=== PATIENT | male | born 1965 | race Caucasian/White ===

== ENCOUNTER 2017-05-16 23:27 | Inpatient (IN) | payer MEDICAID ==
[~2017-05-16] VITALS: Ht 162.6 cm; Wt 82.0 kg
[2017-05-17] VITALS (7 sets, daily range): BP systolic 109–126; BP diastolic 61–79
[2017-05-17 01:28] LABS: PLATELET COUNT 375 x10^3mcL (130-400); RED CELL DISTRIBUTION WIDTH 13.9 % (11.5-14.5)
[2017-05-17 01:36] LABS: CALCIUM 9.4 mg/dL (8.5-10.1); CARBON DIOXIDE 29.5 mmol/L (21-32); CHLORIDE SERUM 103 mmol/L (98-107); GFR1 > 60 mL/min; GLUCOSE SERUM 132 mg/dL (74-106); POTASSIUM SERUM 3.4 mmol/L (3.5-5.1); SODIUM SERUM 138 mmol/L (136-145)
[2017-05-17 01:41] LABS: ALBUMIN 3.8 g/dL (3.4-5.0); ALKALINE PHOSPHATASE 76 U/L (46-116); ALT/SGPT 21 U/L (16-63); AST/SGOT 27 U/L (15-37); BILIRUBIN TOTAL 0.77 mg/dL (0.20-1.00); LIPASE 114 IU/L (73-393); TOTAL PROTEIN, SERUM 7.4 g/dL (6.4-8.2)
[2017-05-17 03:41] LABS: AMPHETAMINE QUAL UR POSITIVE (NEG <=1000)
[2017-05-17 04:14] LABS: microscopic required? YES; urine erythrocyte TRACE (NEGATIVE)
[2017-05-17 04:26] LABS: T3 TOTAL 1.09 ng/mL
[2017-05-17 04:28] LABS: FREE T4 1.23 ng/dL (0.76-1.46); FREE THYROXINE INDEX 2.9 ug/dL (1.4-4.5); T4(THYROXINE) 7.7 ug/dL (4.7-13.3)
[2017-05-17 04:33] LABS: MAGNESIUM 2.2 mg/dL (1.8-2.4); PHOSPHOROUS 2.4 mg/dL (2.5-4.9)
[2017-05-17 16:43] LABS: CHOLESTEROL/HDL RATIO 3.6
[2017-05-18 06:23] VITALS: BP 115/77
[2017-05-18 07:22] LABS: CALCIUM 8.4 mg/dL (8.5-10.1); CARBON DIOXIDE 27.5 mmol/L (21-32); CHLORIDE SERUM 102 mmol/L (98-107); CREATININE SERUM 0.9 mg/dL (0.7-1.3); GFR1 > 60 mL/min; GLUCOSE SERUM 122 mg/dL (74-106); MAGNESIUM 1.9 mg/dL (1.8-2.4); PHOSPHOROUS 3.5 mg/dL (2.5-4.9); POTASSIUM SERUM 4.3 mmol/L (3.5-5.1); SODIUM SERUM 137 mmol/L (136-145)
[2017-05-18 07:32] LABS: BASOPHIL % 0.2 % (0-2); PLATELET COUNT 346 x10^3mcL (130-400); RED CELL DISTRIBUTION WIDTH 13.7 % (11.5-14.5)
[2017-05-18 10:31] VITALS: BP 112/78
[2017-05-18 13:20] VITALS: BP 127/80
[2017-05-18 18:04] VITALS: BP 150/92
[2017-05-18 20:44] VITALS: BP 145/89
[2017-05-19 04:48] VITALS: BP 136/82
[2017-05-19 06:11] LABS: BASOPHIL % 0.2 % (0-2); PLATELET COUNT 325 x10^3mcL (130-400); RED CELL DISTRIBUTION WIDTH 13.9 % (11.5-14.5)
[2017-05-19 06:41] LABS: CALCIUM 7.9 mg/dL (8.5-10.1); CARBON DIOXIDE 25.6 mmol/L (21-32); CHLORIDE SERUM 103 mmol/L (98-107); CREATININE SERUM 0.8 mg/dL (0.7-1.3); GFR1 > 60 mL/min; GLUCOSE SERUM 113 mg/dL (74-106); POTASSIUM SERUM 3.5 mmol/L (3.5-5.1); SODIUM SERUM 137 mmol/L (136-145)
[2017-05-19 10:00] VITALS: BP 127/80
[2017-05-19 15:15] VITALS: BP 104/65
[2017-05-19 17:40] VITALS: BP 122/73
[2017-05-19 20:51] VITALS: BP 141/90
[2017-05-20 05:19] VITALS: BP 122/70
[2017-05-20 06:35] LABS: PLATELET COUNT 320 x10^3mcL (130-400); RED CELL DISTRIBUTION WIDTH 13.9 % (11.5-14.5)
[2017-05-20 06:57] LABS: BASOPHIL % 0 % (0-2)
[2017-05-20 06:59] LABS: CALCIUM 8.1 mg/dL (8.5-10.1); CARBON DIOXIDE 26.3 mmol/L (21-32); CHLORIDE SERUM 104 mmol/L (98-107); CREATININE SERUM 0.8 mg/dL (0.7-1.3); GFR1 > 60 mL/min; GLUCOSE SERUM 124 mg/dL (74-106); POTASSIUM SERUM 3.3 mmol/L (3.5-5.1); SODIUM SERUM 137 mmol/L (136-145)
[2017-05-20 09:18] VITALS: BP 119/78
[2017-05-20 13:33] VITALS: BP 115/76
[2017-05-20 16:57] VITALS: BP 114/68
[2017-05-20 20:34] VITALS: BP 111/65
[2017-05-21 05:39] VITALS: BP 129/79
[2017-05-21 06:05] LABS: BASOPHIL % 0.3 % (0-2); PLATELET COUNT 358 x10^3mcL (130-400); RED CELL DISTRIBUTION WIDTH 13.8 % (11.5-14.5)
[2017-05-21 06:21] LABS: CALCIUM 8.1 mg/dL (8.5-10.1); CARBON DIOXIDE 30.9 mmol/L (21-32); CHLORIDE SERUM 103 mmol/L (98-107); CREATININE SERUM 0.8 mg/dL (0.7-1.3); GFR1 > 60 mL/min; GLUCOSE SERUM 109 mg/dL (74-106); POTASSIUM SERUM 3.7 mmol/L (3.5-5.1); SODIUM SERUM 140 mmol/L (136-145)
[2017-05-21 08:00] VITALS: BP 123/71
[2017-05-21 12:34] VITALS: BP 123/71
[2017-05-21] MEDS ORDERED: KEFLEX500 M1 PO (13:58)
[2017-05-21] MEDS ORDERED: LAC PO (13:59)
[2017-05-21] MEDS ORDERED: NORCO1 TA1 PO (14:01)
== END 2017-05-21 15:39 | disposition home or self-care (01) | DRG 262 ==
LOC: ED 23:27 → DU 05-17 03:47
PROVIDERS: Emergency Medicine; Family Medicine Sports Medicine; Surgery; ADMIT Family Medicine
PROC: 0DB68ZX Excision of Stomach, Via Natural or Artificial Opening Endoscopic, Diagnostic (ICD-10-PCS; 2017-05-17)
PROC: 0DJD8ZZ Inspection of Lower Intestinal Tract, Via Natural or Artificial Opening Endoscopic (ICD-10-PCS; 2017-05-18)
PROC: 0FJ44ZZ Inspection of Gallbladder, Percutaneous Endoscopic Approach (ICD-10-PCS; 2017-05-19)
PROC: 0FT40ZZ Resection of Gallbladder, Open Approach (ICD-10-PCS; principal; 2017-05-19 11:30)
DX: K80.00 Calculus of gallbladder with acute cholecystitis without obstruction (principal); N17.0 Acute kidney failure with tubular necrosis; K55.039 Acute (reversible) ischemia of large intestine, extent unspecified; K44.9 Diaphragmatic hernia without obstruction or gangrene; K57.30 Diverticulosis of large intestine without perforation or abscess without bleeding; R73.03 Prediabetes; E78.2 Mixed hyperlipidemia; E83.39 Other disorders of phosphorus metabolism; D64.9 Anemia, unspecified; F17.210 Nicotine dependence, cigarettes, uncomplicated; F15.10 Other stimulant abuse, uncomplicated; E66.9 Obesity, unspecified; Z68.25 Body mass index [BMI] 25.0-25.9, adult
CPT/HCPCS: 43235; 45378; 82962; 83880; 84439; 90658; 94150; C9113; J0330; J0690; J1170; J1200; J1610; J1885; J1940; J1956; J2175; J2250; J2310; J2405; J2704; J2710; J2765; J3010; J3480; J3490; J7030; J7042; J7120; Q0092